=== PATIENT | male | born 1950 | race Caucasian/White ===

== ENCOUNTER 2016-09-16 10:05 | Day surgery (SDC) | payer OTHER, MEDICARE ==
[2016-09-12 17:50] VITALS: BMI 24.7
--- NOTE | 2016-09-16 10:27 | EKG ---
Test Reason : Blood Pressure : / mmHG Vent. Rate : 063 BPM Atrial Rate : 063 BPM P-R Int : 158 ms QRS Dur : 090 ms QT Int : 408 ms P-R-T Axes : 078 087 068 degrees QTc Int : 417 ms NORMAL SINUS RHYTHM NORMAL ECG NO PREVIOUS ECGS AVAILABLE Confirmed by MD HECTOR, JOSE MARTIN ([id number]) on 09/16/2016 10:26:46 AM Referred By: Sampson Conroy Confirmed By:JOSE MARTIN YOUNG MD
[2016-09-16] MEDS ORDERED: PROPOFOL 20 ML ONE (12:21)
[2016-09-16] MEDS ORDERED: MIDAZOLAM HCL 2 MG/2 ML SINGLE DOSE VIAL ONE (12:21)
[2016-09-16] MEDS ORDERED: ceFAZolin SODIUM 1 GM VIAL ONE (12:39)
[2016-09-16] MEDS ORDERED: SODIUM CHLORIDE 0.9% P/F 10 ML VIAL IJ ONE (12:39)
[2016-09-16] MEDS ORDERED: LIDOCAINE HCL/PF 2% SDV 5ML VIAL ONE (12:41)
[2016-09-16] MEDS ORDERED: ceFAZolin SODIUM 1 GM VIAL IVPB ONE (12:42)
[2016-09-16] MEDS ORDERED: DEXAMETHASONE SOD PHOSPHATE 4 MG/1 ML VIAL ONE (12:48)
[2016-09-16] MEDS ORDERED: PROMETHAZINE HCL 25 MG/1 ML VIAL IVPUSH PRN (13:26)
[2016-09-16] MEDS ORDERED: ONDANSETRON 4 MG/2 ML VIAL IVPUSH PRN (13:26)
[2016-09-16] MEDS ORDERED: LACTATED RINGERS SOLUTION 1,000 ML IV SCH (13:30)
[2016-09-16] MEDS ORDERED: IBUPROFEN 800 MG/8 ML IJ IVPB PRN (13:35)
[2016-09-16] MEDS ORDERED: ACETAMINOPHEN 1000 MG/100 ML VIAL (NON FORMULARY) IVPB ONE ×2 (13:45→14:31)
[2016-09-16] MEDS ORDERED: DEXTROSE 5%-0.45% SALINE 1,000 ML IV SCH (13:45)
[2016-09-16] MEDS ORDERED: ACETAMINOPHEN INJECTION 100 ML IVPB ONE (14:31)
[2016-09-16 14:39] VITALS: TEMP 97.5
[2016-09-16 16:26] VITALS: BP 115/59; PULSE 60
--- NOTE | 2016-09-18 11:20 | PATH ---
Surgical Pathology Report Patient Name: ANGELIQUE PENN [facility]. Rec. #: [id number] /Age/Gender: 1950 (Age: 66) / M Account: [id number] Location: [facility] SURGICAL Taken: 09/16/2016 Received: 09/16/2016 Reported: 09/17/2016 Physicians: Sampson Conroy M.D. Specimen(s) Received BLADDER STONE Clinical History Bladder stone Final Diagnosis STONES, BLADDER, EXTRACTION: CALCULI (GROSS EXAM). SPECIMEN SENT FOR CHEMICAL ANALYSIS. Electronically Signed Tony Moncada M.D. Gross Description Received fresh labeled "bladder stones" is a 0.6 x 0.4 x 0.2 cm aggregate of capone irregular calculi. The specimen is sent for chemical analysis. /09/16/201609/16/2016
--- NOTE | 2016-09-24 09:39 | OP ---
DATE OF OPERATION: 09/16/2016 PREOPERATIVE DIAGNOSIS: Bladder stone. POSTOPERATIVE DIAGNOSIS: Bladder stone. PROCEDURES: Cystoscopy. Laser litholapaxy of bladder stone. SURGEON: Sampson Conroy MD ANESTHESIA: General. FINDINGS: A bladder stone. ESTIMATED BLOOD LOSS: Minimal. PREOPERATIVE INDICATION: The patient is a 66-year-old male being worked up for gross hematuria. He was found to have a bladder stone. He comes to the OR for laser of the stone. OPERATION: The patient was brought to the OR, placed on the table in the supine position, given general anesthesia and IV antibiotics, and placed in the modified lithotomy position. The groin was prepped and draped sterilely. A timeout was performed. A cystoscopy was performed. The urethra appeared to be unremarkable. The prostate was enlarged with obstructive lateral lobes. In the bladder, the bladder itself had trabeculation. No tumors were seen. Both UOs were visualized. The large stone was seen. Using a 1000-micron fiber, the stone was broken up into small pieces and then irrigated out. Good hemostasis was maintained throughout. The bladder was emptied. The patient was woken up. SAMPSON CONROY M.D. [id number]
[2016-09-26 00:06] LABS: COLOR Tan (.)
== END 2016-09-16 16:26 | disposition home or self-care (01) ==
LOC: JASU-SURG 10:05
PROVIDERS: ATTEND Urology
PROC: 0TCB8ZZ Extirpation of Matter from Bladder, Via Natural or Artificial Opening Endoscopic (ICD-10-PCS; principal; 2016-09-16 12:00)
DX: N21.0 Calculus in bladder (principal)
CPT/HCPCS: 36415; 82360; 88300-TC; 93005; 93010; 94760